=== PATIENT | female | born 1965 | race African-American/Black ===

== ENCOUNTER 2018-11-01 22:40 | Emergency (ER) | payer OTHER ==
[~2018-11-01] VITALS: Ht 165.1 cm; Wt 56.7 kg
[2018-11-01 23:30] LABS: PLATELET COUNT 172 K/uL (152-353)
[2018-11-01 23:54] LABS: POTASSIUM 3.9 mmol/L (3.6-5.2)
[2018-11-02 02:26] VITALS: BP 120/65; TEMP 98.1
== END 2018-11-02 01:40 | disposition home or self-care (01) ==
LOC: ED 22:40
PROVIDERS: Internal Medicine
DX: N39.0 Urinary tract infection, site not specified (principal); R53.81 Other malaise; F10.129 Alcohol abuse with intoxication, unspecified
CPT/HCPCS: 80053; 81000; 85027; 87088; 87502; 99283

== ENCOUNTER 2019-04-10 15:03 | Outpatient (CLI) | payer OTHER | END 2019-04-10 15:07 | disposition short-term general hospital (02) | LOC: AMB 15:03 | DX: K92.0 Hematemesis (principal); F10.129 Alcohol abuse with intoxication, unspecified; K74.60 Unspecified cirrhosis of liver | CPT/HCPCS: A0425; A0427 ==

== ENCOUNTER 2019-04-10 15:14 | Emergency (ER) | payer OTHER ==
[~2019-04-10] VITALS: Ht 165.1 cm; Wt 56.7 kg
[2019-04-10 16:15] LABS: PLATELET COUNT 113 K/uL (152-353)
[2019-04-10 16:41] LABS: POTASSIUM 3.3 mmol/L (3.6-5.2); SODIUM 139 mmol/L (136-145)
[2019-04-10 16:58] LABS: PARTIAL THROMBOPLASTIN TIME 27.4 SECONDS (24.5-33.6)
[2019-04-10 18:50] VITALS: BP 123/80; TEMP 97.6
== END 2019-04-10 18:50 | disposition home or self-care (01) ==
LOC: ED 15:14
PROVIDERS: Emergency Medicine
PROC: 0CQ0XZZ Repair Upper Lip, External Approach (ICD-10-PCS; principal; 2019-04-10)
DX: F10.229 Alcohol dependence with intoxication, unspecified (principal); N39.0 Urinary tract infection, site not specified; S01.511A Laceration without foreign body of lip, initial encounter; W18.39XA Other fall on same level, initial encounter; Y92.89 Other specified places as the place of occurrence of the external cause
CPT/HCPCS: 80053; 80307; 80320; 81000; 82150; 82272; 83690; 83735; 84484; 85027; 85610; 85730; 87077; 87086; 87088; 87186; 93005; 96361; 96365; 99284; J3411; J3475; J3490

== ENCOUNTER 2020-03-08 00:09 | Emergency (ER) | payer OTHER ==
[~2020-03-08] VITALS: Ht 165.1 cm; Wt 83.9 kg
[2020-03-08 00:39] LABS: POTASSIUM 3.1 mmol/L (3.6-5.2)
[2020-03-08 00:45] LABS: PLATELET COUNT 156 K/uL (152-353)
[2020-03-08 00:53] LABS: PARTIAL THROMBOPLASTIN TIME 21.9 SECONDS (24.5-33.6)
[2020-03-08 04:23] VITALS: BP 107/58; TEMP 98.1
== END 2020-03-08 04:23 | disposition short-term general hospital (02) ==
LOC: ED 00:09
PROVIDERS: Hospitalist
PROC: 0HQFXZZ Repair Right Hand Skin, External Approach (ICD-10-PCS; principal; 2020-03-08)
PROC: 0HQHXZZ Repair Right Upper Leg Skin, External Approach (ICD-10-PCS; 2020-03-08)
PROC: 0T9B70Z Drainage of Bladder with Drainage Device, Via Natural or Artificial Opening (ICD-10-PCS; 2020-03-08)
PROC: 30233N1 Transfusion of Nonautologous Red Blood Cells into Peripheral Vein, Percutaneous Approach (ICD-10-PCS; 2020-03-08)
DX: S70.11XA Contusion of right thigh, initial encounter (principal); S76.821A Laceration of other specified muscles, fascia and tendons at thigh level, right thigh, initial encounter; S61.411A Laceration without foreign body of right hand, initial encounter; F10.129 Alcohol abuse with intoxication, unspecified; D64.89 Other specified anemias; X99.1XXA Assault by knife, initial encounter; Y92.89 Other specified places as the place of occurrence of the external cause
CPT/HCPCS: 36415; 36430; 51702; 80053; 80307; 80320; 81000; 83605; 84484; 85027; 85610; 85730; 86850; 86900; 86901; 86922; 87040; 87077; 87086; 87088; 87186; 90471; 90715; 93005; 96360; 96361; 96365; 96366; 96368; 96375; 99285; J0690; J1940; J2270; J3490; J7040; J7120; P9016

== ENCOUNTER 2020-07-13 09:27 | Emergency (ER) | payer OTHER ==
[~2020-07-13] VITALS: Ht 165.1 cm; Wt 63.5 kg
[2020-07-13 10:33] LABS: POTASSIUM 3.3 mmol/L (3.6-5.2)
[2020-07-13 10:35] LABS: PARTIAL THROMBOPLASTIN TIME 28.1 SECONDS (24.5-33.6)
[2020-07-13 10:56] LABS: PLATELET COUNT 100 K/uL (152-353)
[2020-07-13 11:50] VITALS: BP 92/65; TEMP 98
== END 2020-07-13 11:51 | disposition short-term general hospital (02) ==
LOC: ED 09:27
PROVIDERS: Family Medicine
DX: S72.491A Other fracture of lower end of right femur, initial encounter for closed fracture (principal); S80.01XA Contusion of right knee, initial encounter; W10.8XXA Fall (on) (from) other stairs and steps, initial encounter; Y92.89 Other specified places as the place of occurrence of the external cause
CPT/HCPCS: 80053; 80320; 85007; 85027; 85610; 85730; 96360; 96365; 96374; 96375; 99284; J2270

== ENCOUNTER 2020-08-20 18:26 | Emergency (ER) | payer OTHER ==
[~2020-08-20] VITALS: Ht 165.1 cm; Wt 63.5 kg
[2020-08-20 18:34] VITALS: TEMP 98.5
[2020-08-20 19:50] VITALS: BP 165/64
== END 2020-08-20 19:50 | disposition home or self-care (01) ==
LOC: ED 18:26
DX: Z48.02 Encounter for removal of sutures (principal)